=== PATIENT | male | born 1995 | race Caucasian/White ===

== ENCOUNTER 2017-07-19 11:42 | Emergency (ER) | END 2017-07-19 13:53 | disposition home or self-care (01) ==

== ENCOUNTER 2017-07-31 16:47 | Emergency (ER) | END 2017-07-31 17:10 | disposition home or self-care (01) ==

== ENCOUNTER 2018-10-30 12:37 | Emergency (ER) | payer BC, MEDICAID ==
[~2018-10-30] VITALS: Ht 185.4 cm; Wt 75.0 kg
[~2018-10-30 12:37] MED LIST: ACET325T33 PO; BACITUD TOP; NAPR-985 PO
[2018-10-30 12:53] VITALS: BP 134/71; PULSE 89; RESP 18; Ht 185.4 cm; Wt 75.0 kg
[2018-10-30] MEDS ORDERED: NEOMYC/POLYMYX/BACIT 30 GM OINT TOP ONE (14:00)
[2018-10-30] MEDS ORDERED: LIDOCAINE 4% CR TOP ONE (14:00)
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
== END 2018-10-30 16:31 | disposition home or self-care (01) ==
LOC: FTE 12:37
DX: S01.81XA Laceration without foreign body of other part of head, initial encounter (principal); S60.512A Abrasion of left hand, initial encounter; V18.4XXA Pedal cycle driver injured in noncollision transport accident in traffic accident, initial encounter
CPT/HCPCS: 12013; 70110; 73130; Z7502; Z7610

== ENCOUNTER 2018-11-01 09:10 | Emergency (ER) | payer BC ==
[~2018-11-01] VITALS: Ht 185.4 cm; Wt 75.5 kg
[2018-11-01 09:15] VITALS: BP 113/66; PULSE 64; RESP 18; Ht 185.4 cm; Wt 75.5 kg
--- NOTE | 2018-11-01 09:34 | ERD ---
ER Documentation Chief Complaint Chief Complaint wound check on face and left arm HPI 22-year-old male presents to ED for wound recheck on his chin. Patient denies any fevers, chills. Patient denies any significant pain. Patient denies any discharge or pus around the wound. Patient denies any redness around the wound. Patient denies any concerns for infection at this time. Patient states he is doing well overall ROS All systems reviewed and are negative except as per history of present illness. Medications Home Meds Active Scripts Bacitracin* (Bacitracin Oint (UD)*) 1 Applic Oint, 1 APPLIC TOP BID, #20 PKT APPLY TO FACE AND HAND Prov:ANTOLINMOELUCIO 10/30/18 Naproxen* (Naprosyn*) 500 Mg Tablet, 500 MG PO BID PRN for PAIN AND/OR INFLAM MATION, #30 TAB Prov:ALMA ROSA LUKE PA-C 07/19/17 Allergies Allergies: Coded Allergies: No Known Allergy (Unverified , 11/01/18) PMhx/Soc Hx Alcohol Use: No Hx Substance Use: No Hx Tobacco Use: No FmHx Family History: No diabetes Physical Exam Vitals Vital Signs Date Temp Pulse Resp B/P (MAP) Pulse Ox O2 O2 Flow FiO2 Time Delivery Rate 11/01/18 98.2 64 18 113/66 99 09:15 (82) Physical Exam Const: No acute distress Head: Atraumatic Resp: Clear to auscultation bilaterally Cardio: Regular rate and rhythm, Abd: Soft, non tender, non distended. Skin: 1 inch scab on the patient's lower right sanchez that is healing well without any signs of infection, without any drainage. 1 inch laceration on the bottom of the patient's lower chin that is not red, not warm to touch, no drainage, and appears to be healing well Neur: Awake and alert Psych: Normal Mood and Affect Procedures/MDM ED COURSE: The patient was stable throughout ED course. I kept the patient informed of laboratory and diagnostic imaging results throughout the ED course. MEDICATIONS GIVEN: [None.] MEDICAL DECISION MAKING: Patient is a 22-year-old male presenting for wound check status post 2 days. The wound is clean, dry and intact with no evidence of infection. Patient has good wound closure and good wound approximation. There is no surrounding erythema, warmth, tenderness or lymphatic streaking. Low suspicion for deep space infection, compartment syndrome, or cellulitis. No evidence of neurologic, vascular or tendon injury. Patient was instructed to return in about a week for suture removal Vital signs were reviewed. Patient is afebrile. Patient was not hypoxic. Patient was hemodynamically stable. Patient was told to follow up with primary care for further care and management. PRESCRIPTION: none DISCHARGE: At this time, patient is stable for discharge and outpatient management. I have instructed the patient to follow-up with their primary care physician in 1-2 days. I have discussed with the patient the possibility of needing to see a specialist for further workup and imaging studies if symptoms persist. I have instructed the patient to promptly return to the ER for any new or worsening symptoms including increased pain, fever, nausea, vomiting, weakness or LOC. The patient expressed understanding of and agreement with this plan. All questions were answered. Home care instructions were provided. Disclaimer: Inadvertent spelling and grammatical errors are likely due to EHR/dictation software use and do not reflect on the overall quality of patient care. Also, please note that the electronic time recorded on this note does not necessarily reflect the actual time of the patient encounter. Departure Diagnosis: Primary Impression: Encounter for wound re-check Condition: Fair Patient Instructions: Wound Care, Wound Check, Lac F/U (No Infection) Referrals: [facility] YOU HAVE RECEIVED A MEDICAL SCREENING EXAM AND THE RESULTS INDICATE THAT YOU DO NOT HAVE A CONDITION THAT REQUIRES URGENT TREATMENT IN THE EMERGENCY DEPARTMENT. FURTHER EVALUATION AND TREATMENT OF YOUR CONDITION CAN WAIT UNTIL YOU ARE SEEN IN YOUR DOCTORS OFFICE WITHIN THE NEXT 1-2 DAYS. IT IS YOUR RESPONSIBILITY TO MAKE AN APPOINTMENT FOR FOLOW-UP CARE. IF YOU HAVE A PRIMARY DOCTOR --you should call your primary doctor and schedule an appointment IF YOU DO NOT HAVE A PRIMARY DOCTOR YOU CAN CALL OUR PHYSICIAN REFERRAL HOTLINE AT IF YOU CAN NOT AFFORD TO SEE A PHYSICIAN YOU CAN CHOSE FROM THE FOLLOWING [facility] [address] [place]. [facility] [address] [facility] [address] [facility] [address] [facility] [facility] [address] [facility]. [facility] [address] [facility]. [facility] YOU HAVE RECEIVED A MEDICAL SCREENING EXAM AND THE RESULTS INDICATE THAT YOU DO NOT HAVE A CONDITION THAT REQUIRES URGENT TREATMENT IN THE EMERGENCY DEPARTMENT. FURTHER EVALUATION AND TREATMENT OF YOUR CONDITION CAN WAIT UNTIL YOU ARE SEEN IN YOUR DOCTORS OFFICE WITHIN THE NEXT 1-2 DAYS. IT IS YOUR RESPONSIBILITY TO MAKE AN APPOINTMENT FOR FOLOW-UP CARE. IF YOU HAVE A PRIMARY DOCTOR --you should call your primary doctor and schedule and appointment IF YOU DO NOT HAVE A PRIMARY DOCTOR YOU CAN CALL OUR PHYSICIAN REFERRAL HOTLINE AT . IF YOU CAN NOT AFFORD TO SEE A PHYSICIAN YOU CAN CHOSE FROM THE FOLLOWING [facility] INSTITUTIONS: [facility] [address] [place] [address] [facility] [address] [place] [address] [facility] [address] [place] [address] Additional Instructions: Call your primary care doctor TOMORROW for an appointment during the next 1-2 days.See the doctor sooner or return here if your condition worsens before your appointment time. MAX RODRIGUEZ PA-C Nov 01, 2018 09:34
== END 2018-11-01 09:51 | disposition home or self-care (01) ==
LOC: FTE 09:10
DX: Z48.01 Encounter for change or removal of surgical wound dressing (principal)
CPT/HCPCS: 99281

== ENCOUNTER 2018-11-10 10:11 | Emergency (ER) | payer BC ==
[~2018-11-10] VITALS: Ht 188 cm; Wt 76.7 kg
[2018-11-10 10:13] VITALS: BP 111/71; PULSE 83; RESP 18; Ht 188 cm; Wt 76.7 kg
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
== END 2018-11-10 10:52 | disposition home or self-care (01) ==
LOC: FTE 10:11
DX: Z48.02 Encounter for removal of sutures (principal)
CPT/HCPCS: 99281